=== PATIENT | female | born 1980 | race African-American/Black ===

== ENCOUNTER 2017-10-17 13:06 | Emergency (ER) | payer OTHER ==
[2017-10-17] MEDS ORDERED: methylPREDNISolone Sod Succ/PF 125 MG/2 ML VIAL ONE (13:42)
== END 2017-10-17 14:06 | disposition home or self-care (01) ==
LOC: SCSER 13:06
DX: S60.862A Insect bite (nonvenomous) of left wrist, initial encounter (principal); E10.9 Type 1 diabetes mellitus without complications; W57.XXXA Bitten or stung by nonvenomous insect and other nonvenomous arthropods, initial encounter
CPT/HCPCS: 81025; 96372; J2930